=== PATIENT | female | born 1995 | race Asian ===

== ENCOUNTER 2017-01-18 09:58 | Inpatient (IN) | payer SELFPAY ==
[~2017-01-18] VITALS: Ht 167 cm; Wt 68.0 kg
[2017-01-18] MEDS ORDERED: LACTATED RINGERS 1,000 ML IV SCH (10:08)
[2017-01-18] MEDS ORDERED: OXYTOCIN 20 UNITS in LACTATED RINGERS 1,000 ML IV SCH (10:10)
[2017-01-18] MEDS ORDERED: CARBOPROST 250 MCG/ML AMP IM PRN (10:10)
[2017-01-18] MEDS ORDERED: OXYTOCIN 10 UNITS/ML VIAL IM SCH (10:10)
[2017-01-18] MEDS ORDERED: METHYLERGONOVINE 0.2 MG/ML AMP IM PRN (10:10)
[2017-01-18] MEDS ORDERED: AMPICILLIN 2,000 MG in NACL 0.9% MINI-BAG PLUS 100 ML IV SCH (10:10)
[2017-01-18] MEDS ORDERED: AMPICILLIN 2,000 MG VIAL ONE (10:26)
[2017-01-18 10:40] LABS: BASOPHILS # (AUTO) 0.1 K/uL (0.00-0.22); BASOPHILS % (AUTO) 1.5 % (0.0-2.0); EOSINOPHILS # (AUTO) 0.2 K/uL (0-0.4); EOSINOPHILS % (AUTO) 2.4 % (0.0-4.0); HEMATOCRIT 35.1 % (36-48); LYMPHOCYTES # (AUTO) 1.5 K/uL (2.5-16.5); LYMPHOCYTES % (AUTO) 20.5 % (20.5-51.1); MEAN CORPUSCULAR HEMOGLOBIN 23 pg (27-31); MEAN CORPUSCULAR HGB CONC 31 g/dL (33-37); MEAN CORPUSCULAR VOLUME 75 fL (80-94); MONOCYTES # (AUTO) 0.5 K/uL (0.8-1.0); MONOCYTES % (AUTO) 6.1 % (1.7-9.3); NEUTROPHILS # (AUTO) 5.2 K/uL (1.8-7.7); NEUTROPHILS % (AUTO) 69.5 % (42.2-75.2); PLATELET COUNT (AUTO) 122 K/uL (140-450); RED CELL DISTRIBUTION WIDTH 18.7 % (11.6-13.7); WHITE BLOOD COUNT (AUTO) 7.5 K/uL (4.8-10.8)
[2017-01-18 10:49] LABS: ANION GAP 14.4 (8-16); CARBON DIOXIDE 21.3 mmol/L (21-32); CREATININE 0.5 mg/dL (0.6-1.3); POTASSIUM 3.7 mmol/L (3.5-5.1)
[2017-01-18] MEDS ORDERED: ROPIVACAINE 0.2%/NS PREMIX 250 ML EPI ONE (10:51)
[2017-01-18 10:55] LABS: ALBUMIN 2.6 g/dL (3.4-5.0); TOTAL BILIRUBIN 0.3 mg/dL (0.0-1.0)
[2017-01-18] MEDS ORDERED: ROPIVACAINE 0.2%/NS PREMIX 250 ML EPI SCH (11:00)
[2017-01-18 11:03] LABS: APPEARANCE,URINE CLEAR (CLEAR); BILIRUBIN,URINE NEGATIVE (NEGATIVE); BLOOD, URINE NEGATIVE (NEGATIVE); COLOR,URINE YELLOW (YELLOW); LEUKOCYTE ESTERASE ,URINE NEGATIVE (NEGATIVE); NITRITE, URINE NEGATIVE (NEGATIVE); PH,URINE 6.5 (5.0-9.0); UGLUCOSE NEGATIVE (NEGATIVE)
[2017-01-18 11:43] VITALS: BP 103/67
[2017-01-18] MEDS ORDERED: AMPICILLIN 1,000 MG in NACL 0.9% MINI-BAG PLUS 50 ML IV SCH (12:00)
[2017-01-18] MEDS ORDERED: OXYTOCIN 10 UNITS/ML VIAL ONE (13:47)
[2017-01-18] MEDS ORDERED: METHYLERGONOVINE 0.2 MG/ML AMP ONE (14:31)
[2017-01-18] MEDS ORDERED: MISOPROSTOL 200 MCG TAB ONE (14:37)
[2017-01-18] MEDS ORDERED: CARBOPROST 250 MCG/ML AMP IM ONE (14:37)
[2017-01-18] MEDS ORDERED: SODIUM PHOSPHATE 118 ML ENEM RC PRN (14:50)
[2017-01-18] MEDS ORDERED: MISOPROSTOL 100 MCG TAB RC SCH (14:50)
[2017-01-18] MEDS ORDERED: IBUPROFEN 800 MG TAB PO PRN (14:50)
[2017-01-18] MEDS ORDERED: MEASLES, MUMPS, AND RUBELLA 1 VIAL SQVAC PRN (14:50)
[2017-01-18] MEDS ORDERED: TEMAZEPAM 15 MG CAP PO PRN (14:50)
[2017-01-18] MEDS ORDERED: BENZOCAINE/MENTHOL 20%-0.5% 60 GM CAN TP PRN (14:50)
[2017-01-18] MEDS ORDERED: ONDANSETRON 4 MG/2 ML VIAL IVP PRN (14:50)
[2017-01-18] MEDS ORDERED: ONDANSETRON 4 MG/2 ML VIAL ONE (14:59)
[2017-01-18] MEDS ORDERED: ceFAZolin 1,000 MG VIAL ONE (17:30)
[2017-01-18] MEDS: oxyCODONE/APAP 5/325 MG 1 TAB TAB PO PRN (17:36)
[2017-01-18] MEDS ORDERED: oxyCODONE/APAP 5/325 MG 1 TAB TAB ONE (17:42)
[2017-01-18] MEDS ORDERED: DOCUSATE SOD/SENNA 50/8.6 MG 1 TAB PO SCH (21:00)
[2017-01-18] MEDS: HYDROcodone/APAP 5/325 MG 1 TAB TAB PO PRN (21:42)
[2017-01-18] MEDS ORDERED: diphenhydrAMINE 50 MG/ML VIAL IVP ONE (23:10)
[2017-01-19] MEDS ORDERED: ceFAZolin 1,000 MG VIAL ONE ×2 (02:02→09:52)
[2017-01-19] MEDS ORDERED: LACTATED RINGERS 1,000 ML IV SCH (02:20)
[2017-01-19] MEDS: oxyCODONE/APAP 5/325 MG 1 TAB TAB PO PRN (04:48)
[2017-01-19 05:54] LABS: HEMATOCRIT 24.5 % (36-48); HEMOGLOBIN 7.8 g/dL (12.0-16.0)
[2017-01-19] MEDS: FERROUS SULFATE 325 MG TABEC PO SCH ×3 (08:38→17:38)
--- NOTE | 2017-01-19 09:11 | NUR ---
PATIENT HAS BEEN SCREENED AND CATEGORIZED LOW NUTRITION RISK. PATIENT WILL BE SEEN WITHIN 7 DAYS OF ADMISSION. 01/24/[address]
[2017-01-19] MEDS: HYDROcodone/APAP 5/325 MG 1 TAB TAB PO PRN ×2 (10:02→17:39)
[2017-01-19 11:33] LABS: RAPID PLASMA REAGIN NON-REACTIVE (Non Reactiv)
[2017-01-20 06:36] LABS: HEMATOCRIT 23.9 % (36-48); HEMOGLOBIN 7.7 g/dL (12.0-16.0)
[2017-01-20] MEDS: FERROUS SULFATE 325 MG TABEC PO SCH ×2 (08:00→12:09)
== END 2017-01-20 16:20 | disposition home or self-care (01) | DRG 775 ==
LOC: MLD 09:58 → MFCC 17:41
PROVIDERS: ADMIT Obstetrics & Gynecology; ATTEND Obstetrics & Gynecology
PROC: 10E0XZZ Delivery of Products of Conception, External Approach (ICD-10-PCS; principal; 2017-01-18)
PROC: 0HQ9XZZ Repair Perineum Skin, External Approach (ICD-10-PCS; 2017-01-18)
PROC: 3E0S3CZ (ICD-10-PCS; 2017-01-18)
PROC: 00HU33Z Insertion of Infusion Device into Spinal Canal, Percutaneous Approach (ICD-10-PCS; 2017-01-18)
DX: O70.0 First degree perineal laceration during delivery (principal); Z37.0 Single live birth; Z3A.39 39 weeks gestation of pregnancy
CPT/HCPCS: 36415; 51702; 59409; 80053; 81003; 85018; 85025; 86592; 86886; 86900; 86901; 87340; 87653-90; 90715; J0290; J0690; J1200; J2210; J2405; J2590; J2795; J3490; J7060; J7120